=== PATIENT | female | born 2000 | race Caucasian/White ===

== ENCOUNTER 2021-05-27 15:33 | Emergency (ER) | payer OTHER ==
--- NOTE | 2021-05-27 15:59 | ED Physician Documentation ---
PD HPI CHEST PAIN - Stated complaint Stated Complaint: CHEST PX - History obtained from History obtained from: Patient - History of Present Illness Timing - onset: Today, Last night Timing - onset during: Rest, Light activity Timing - details: Abrupt onset, Still present (she states she has had sharp pains left chest wall occasionally since childhood. Would occur for few seconds to minutes and then stop. Happens a few times a year. Has had it occur more often the past 6 months or so, perhaps every 1-2 weeks. Onset similar last night and has been more consistent today), Intermittant Quality: Aching, Sharp, Pain Location: Left chest (locally at costosternal junction area lower ribs. But not tender to palpation.) Radiation: No: Jaw, Neck, Back Improved by: No: Rest Worsened by: Inspiration. No: Exertion, Movement, Palpation Associated symptoms: No: Shortness of air, Nausea, Vomiting, Feeling faint / dizzy Similar symptoms before: No diagnosis Recently seen: Not recently seen Review of Systems Constitutional: denies: Fever, Chills Nose: denies: Rhinorrhea / runny nose, Congestion Throat: denies: Sore throat Cardiac: reports: Chest pain / pressure. denies: Palpitations, Pedal edema, Calf pain Respiratory: denies: Cough GI: denies: Abdominal Pain, Nausea, Vomiting Skin: denies: Rash, Lesions Neurologic: denies: Near syncope PD PAST MEDICAL HISTORY - Allergies Allergies/Adverse Reactions: Allergies Allergy/AdvReac Type Severity Reaction Status Date / Time No Known Drug Allergies Allergy Verified 05/27/21 16:13 - Living Situation Living Situation: reports: With spouse/s.o. Living Arrangement: reports: At home - Social History Does the pt smoke?: No Does the pt drink ETOH?: No Does the pt have substance abuse?: No - Family History Family history: reports: CAD. denies: Aortic aneursym, Aortic dissection PD ED PE NORMAL - Vitals Vital signs reviewed: Yes - General General: Alert and oriented X 3, No acute distress, Well developed/nourished - HEENT HEENT: Moist mucous membranes, Pharynx benign - Neck Neck: Supple, no meningeal sign, No adenopathy - Cardiac Cardiac: RRR, No murmur, No rub - Respiratory Respiratory: Clear bilaterally, Other (no chestwall tenderness in area of pain) - Abdomen Abdomen: Normal bowel sounds, Soft, Non tender, Other - Derm Derm: Normal color, Warm and dry - Extremities Extremities: No deformity, No tenderness to palpate, Normal ROM s pain, No edema, No calf tenderness / cord - Neuro Neuro: Alert and oriented X 3, No motor deficit, No sensory deficit, Normal speech Results - Vitals Vitals: Oxygen O2 Source Room air - EKG (time done) 15:56 Rate: Rate (enter#) (64) Rhythm: NSR Bracey: Normal Intervals: Normal AR QRS: Normal Ischemia: Normal ST segments. No: ST elevation c/w ischemia, ST depression - Labs Labs: Laboratory Tests 05/27/21 05/27/21 05/27/21 16:37 16:37 16:37 WBC 6.4 RBC 4.56 Hgb 14.2 Hct 41.9 MCV 91.9 MCH 31.1 H MCHC 33.9 RDW 11.5 L Plt Count 266 MPV 9.6 Neut # (Auto) 3.6 Lymph # (Auto) 2.0 Bacon # (Auto) 0.6 Eos # (Auto) 0.3 Baso # (Auto) 0.0 Absolute Nucleated RBC 0.00 Nucleated RBC % 0.0 D-Dimer < 200.0 L Sodium 139 Potassium 3.8 Chloride 103 Carbon Dioxide 26 Anion Gap 10.0 BUN 8 Creatinine 0.7 Estimated GFR (MDRD) 105 Glucose 98 Calcium 9.7 Total Bilirubin 0.9 AST 15 ALT 16 Alkaline Phosphatase 43 Troponin I High Sens B-Natriuretic Peptide Total Protein 7.7 Albumin 4.5 Globulin 3.2 Albumin/Globulin Ratio 1.4 Lipase 33 TSH Rheumatoid Factor 05/27/21 05/27/21 05/27/21 16:37 16:37 16:37 WBC RBC Hgb Hct MCV MCH MCHC RDW Plt Count MPV Neut # (Auto) Lymph # (Auto) Bacon # (Auto) Eos # (Auto) Baso # (Auto) Absolute Nucleated RBC Nucleated RBC % D-Dimer Sodium Potassium Chloride Carbon Dioxide Anion Gap BUN Creatinine Estimated GFR (MDRD) Glucose Calcium Total Bilirubin AST ALT Alkaline Phosphatase Troponin I High Sens < 2.3 L B-Natriuretic Peptide 21 Total Protein Albumin Globulin Albumin/Globulin Ratio Lipase TSH Rheumatoid Factor NEGATIVE 05/27/21 16:37 WBC RBC Hgb Hct MCV MCH MCHC RDW Plt Count MPV Neut # (Auto) Lymph # (Auto) Bacon # (Auto) Eos # (Auto) Baso # (Auto) Absolute Nucleated RBC Nucleated RBC % D-Dimer Sodium Potassium Chloride Carbon Dioxide Anion Gap BUN Creatinine Estimated GFR (MDRD) Glucose Calcium Total Bilirubin AST ALT Alkaline Phosphatase Troponin I High Sens B-Natriuretic Peptide Total Protein Albumin Globulin Albumin/Globulin Ratio Lipase TSH 3.72 Rheumatoid Factor - Rads (name of study) chest xray Radiology: Prelim report reviewed (no acute process), See rad report PD MEDICAL DECISION MAKING - ED course Complexity details: reviewed results (normal ECG, CXR, Trop, d-dimer, RF (considering JRA). Not clear the cause of the pain. ), re-evaluated patient, considered differential (no local tenderness but with sharp local pain recurrently, I think most likely some form of costchondritis. Will assess for cardiovascular and autoimmune. ), d/w patient Departure - Departure Disposition: 01 Home, Self Care Clinical Impression: Chest pain Qualifiers: Chest pain type: precordial pain Qualified Code(s): R07.2 - Precordial pain Condition: Stable Record reviewed to determine appropriate education?: Yes Instructions: ED Chest Pain Costochondritis Comments: Your EKG/chest x-ray/blood tests are looking okay without any signs of more significant cause of your pain. As such, I presume some musculoskeletal pain in the chest wall. Use anti-inflammatory such as ibuprofen or naproxen 2 to 3 tablets twice daily over the next several days to a week. Add Tylenol every 4 hours if needed for pain. I would anticipate improvement over the next 2 to 3 days and resolved by 3 to 5 days. Recheck if not better in that timeframe and return if other symptoms develop or worsening pain. Discharge Date/Time: 05/27/21 18:20
[2021-05-27] MEDS ORDERED: KETOROLAC 15 MG/ML VIAL IVP STA (16:28)
[2021-05-27] MEDS ORDERED: ACETAMINOPHEN 325 MG TABLET PO STA (16:28)
[2021-05-27 16:46] LABS: BASOPHILS % (AUTO) 0.6 %; EOSINOPHILS # (AUTO) 0.3 10^3/uL (0.0-0.7); EOSINOPHILS % (AUTO) 3.9 %; HCT - HEMATOCRIT 41.9 % (37.0-47.0); HGB - HEMOGLOBIN 14.2 g/dL (12.0-16.0); LYMPHOCYTES % (AUTO) 30.8 %; MEAN CORPUSCULAR HEMOGLOBIN 31.1 pg (27.0-31.0); MEAN CORPUSCULAR HGB CONC 33.9 g/dL (32.0-36.0); MEAN CORPUSCULAR VOLUME 91.9 fL (81.0-99.0); MEAN PLATELET VOLUME 9.6 fL (7.9-10.8); MONOCYTES # (AUTO) 0.6 10^3/uL (0.0-1.0); MONOCYTES % (AUTO) 8.7 %; NEUTROPHILS # (AUTO) 3.6 10^3/uL (1.5-6.6); NEUTROPHILS % (AUTO) 55.7 %; PLT - PLATELET COUNT 266 10^3/uL (130-450); RED BLOOD COUNT 4.56 10^6/uL (4.20-5.40); RED CELL DISTRIBUTION WIDTH 11.5 % (12.0-15.0); WHITE BLOOD COUNT 6.4 x10^3/uL (4.8-10.8)
--- NOTE | 2021-05-27 16:57 | XRAY Report ---
PROCEDURE: Chest 1 View X-Ray INDICATIONS: Chest Pain TECHNIQUE: One view of the chest was acquired. COMPARISON: None. FINDINGS: Surgical changes and devices: None. Lungs and pleura: No pleural effusions or pneumothorax. Lungs are clear. Mediastinum: Mediastinal contours appear normal. Heart size is normal. Bones and chest wall: No suspicious bony lesions. Overlying soft tissues appear unremarkable. IMPRESSION: CHEST WITHOUT ACUTE CARDIOPULMONARY ABNORMALITIES. Reviewed by: Abdi Dunbar MD on 05/27/2021 4:56 PM PDT Approved by: Abdi Dunbar MD on 05/27/2021 4:56 PM PDT Station ID: [id number]
[2021-05-27 16:58] LABS: ALBUMIN 4.5 g/dL (3.2-5.5); ALBUMIN/GLOBULIN RATIO 1.4 (1.0-2.2); BILIRUBIN,TOTAL 0.9 mg/dL (0.2-1.0); CALCIUM 9.7 mg/dL (8.5-10.3); CREATININE 0.7 mg/dL (0.4-1.0); POTASSIUM 3.8 mmol/L (3.5-5.0); TOTAL PROTEIN 7.7 g/dL (6.7-8.2)
[2021-05-27 17:42] LABS: RHEUMATOID FACTOR NEGATIVE (Negative)
[2021-05-27] MEDS ORDERED: DEXAMETHASONE 10 MG/ML VIAL IVP STA (17:58)
[2021-05-27 18:18] VITALS: BP 118/79
== END 2021-05-27 18:20 | disposition home or self-care (01) ==
LOC: EDBD → ED 15:33
DX: R07.2 Precordial pain (principal); Z82.49 Family history of ischemic heart disease and other diseases of the circulatory system
CPT/HCPCS: 36415; 71045; 80053; 83690; 83880; 84443; 84484; 85025; 85379; 86430; 93005; 96374; 96375; 99284; A9270